=== PATIENT | female | born 1995 | race Two or more races ===

== ENCOUNTER 2022-06-23 14:25 | Emergency (ER) | payer OTHER ==
[~2022-06-23] VITALS: Ht 162.6 cm; Wt 90.7 kg
== END 2022-06-23 17:45 | disposition home or self-care (01) ==
LOC: ER 14:25
DX: S90.212A Contusion of left great toe with damage to nail, initial encounter (principal); X58.XXXA Exposure to other specified factors, initial encounter; Y93.9 Activity, unspecified; Y92.9 Unspecified place or not applicable; Y99.9 Unspecified external cause status